=== PATIENT | female | born 1990 ===

== ENCOUNTER 2020-07-11 23:01 | Inpatient (IN) ==
[2020-07-12] MEDS ORDERED: OXYTOCIN 30 UNITS/500 ML BAG IV PRN ×2 (02:23→14:13)
[2020-07-12 02:40] LABS: Hematocrit (blood only) 32.7 % (37-47); Hemoglobin 10.8 g/dL (12.0-16.0); Mean Corpuscular Hemoglobin 25.1 pg (25-34); Mean Corpuscular Volume 75.9 fL (80-100); Mean Platelet Volume 9.7 fL (7.4-10.4); Platelet Count 198 K/uL (130-400); RDW Coefficient of Variation 13.9 % (11.5-14.5); RDW Standard Deviation 38.6 fL (36.4-46.3); Red Blood Count 4.31 M/uL (4.2-5.4); White Blood Count 6.38 K/uL (4.8-10.8)
[2020-07-12] MEDS: LACTATED RINGER'S 1,000 ML IV PRN ×2 (05:00→09:30)
[2020-07-12] MEDS ORDERED: ePHEDrine sulfate 50 MG/ML AMP ONE (05:07)
[2020-07-12] MEDS ORDERED: BUPIVACAINE 0.25% 30 ML VIAL ONE (05:07)
[2020-07-12] MEDS ORDERED: fentaNYL 2MCG/ML ROPIV 1.25MG/ML 100 ML BAG EPI ONE (05:08)
[2020-07-12] MEDS ORDERED: fentaNYL citrate 100 MCG/2 ML VIAL ONE (05:08)
--- NOTE | 2020-07-12 05:20 | Obstetrical Progress Note ---
Date of Service July 12, 2020 Assessment & Plan Admission and Anticipated Discharge Date Admission Date: July 12, 2020 Subjective Admit Note 30 F [id number] at 40.1 weeks admitted in labor. GBS is negative. Covid is negative. Cervix 4-5/80/-2/vertex. Planning for epidural, Anticipate normal delivery. Results & Data ([facility]) Vital Signs (Past 12 Hours) Vital Signs Temp Pulse Resp BP 07/12/20 02:17 77 104/68 07/12/20 02:15 36.9 C 18 07/11/20 23:24 36.8 C 72 18 117/76 07/11/20 23:11 72 117/76
--- NOTE | 2020-07-12 05:25 | Anesthesiology Consultation ---
Date of Service July 12, 2020 Assessment & Plan (1) Encounter for pre-operative examination: Chart Review Chart Review: Acceptable Risk for Labor Epidural History Height/Weight Height: 5 ft 1 in Weight: 66.678 kg Allergies Allergy/AdvReac Type Severity Reaction Status Date / Time vancomycin Allergy Rash Verified 07/11/20 23:23 Medications Home Medications Medication Instructions Recorded Confirmed Last Taken levothyroxine [Levoxyl] 125 mcg PO DAILY 07/11/20 07/11/20 07/11/20 06:00 [id number] 1 tab PO DAILY 07/11/20 07/11/20 07/11/20 08:00 [] Past Medical History Medical History Hypothyroid Past Surgical History Surgical History History of bilateral breast reduction surgery Hx of breast reduction, elective Social History Smoking Status: Never smoker Hx Alcohol Use: No Hx Substance Use: No Physical Exam Vital Signs Last Vital Signs Temp 36.9 C 07/12/20 02:15 Pulse 77 07/12/20 02:17 Resp 18 07/12/20 02:15 BP 104/68 07/12/20 02:17 Testing Laboratory Results 07/12/20 02:30
[2020-07-12] MEDS ORDERED: NALOXONE HCL 1 MG in SODIUM CHLORIDE 0.9% 1000ML 1,000 ML IV PRN (06:02)
[2020-07-12] MEDS ORDERED: ONDANSETRON INJ 2 MG/ML 2 ML VIAL IV PRN (06:02)
[2020-07-12] MEDS ORDERED: NALOXONE HCL 0.4 MG/1 ML VIAL/CARP IV PRN (06:02)
[2020-07-12] MEDS ORDERED: fentaNYL 2MCG/ML ROPIV 1.25MG/ML 100 ML BAG EPI PRN (06:02)
[2020-07-12] MEDS ORDERED: ePHEDrine sulfate 50 MG/ML AMP IV PRN (06:02)
--- NOTE | 2020-07-12 10:59 | Obstetrical Progress Note ---
Date of Service July 12, 2020 Assessment & Plan Admission and Anticipated Discharge Date Admission Date: July 12, 2020 Subjective Doing well FHR; CAT1 Ctx 1-4mins VE; 4/90/-2 SROM- Clear Results & Data ([facility]) Vital Signs (Past 12 Hours) Vital Signs Temp Pulse Resp BP Pulse Ox 07/12/20 10:56 83 110/74 07/12/20 10:55 84 100 07/12/20 10:50 95 H 100 07/12/20 10:48 95 H 105/68 07/12/20 10:45 110 H 98 07/12/20 10:40 78 98 07/12/20 10:35 75 99 07/12/20 10:33 74 104/69 07/12/20 10:30 83 99 07/12/20 10:25 71 98 07/12/20 10:20 81 98 07/12/20 10:16 78 106/70 07/12/20 10:15 81 99 07/12/20 10:10 80 99 07/12/20 10:05 91 H 99 07/12/20 10:03 75 106/70 07/12/20 10:00 83 99 07/12/20 09:55 92 H 99 07/12/20 09:50 76 100 07/12/20 09:47 93 H 97/62 L 07/12/20 09:45 80 98 07/12/20 09:40 87 98 07/12/20 09:35 69 99 07/12/20 09:32 89 101/65 07/12/20 09:30 82 99 07/12/20 09:25 79 98 07/12/20 09:24 99 H 92 07/12/20 09:20 80 98 07/12/20 09:16 82 104/70 07/12/20 09:15 95 H 99 07/12/20 09:10 80 99 07/12/20 09:05 92 H 100 07/12/20 09:01 76 108/74 07/12/20 09:00 88 100 07/12/20 08:55 74 99 07/12/20 08:50 91 H 100 07/12/20 08:46 83 102/70 07/12/20 08:45 75 100 07/12/20 08:40 89 99 07/12/20 08:35 82 99 07/12/20 08:31 91 H 104/70 07/12/20 08:30 76 99 07/12/20 08:25 81 99 07/12/20 08:20 87 100 07/12/20 08:16 65 104/68 07/12/20 08:15 79 100 07/12/20 08:10 76 99 07/12/20 08:05 89 99 07/12/20 08:02 79 104/70 07/12/20 08:00 88 100 07/12/20 07:55 82 100 07/12/20 07:50 89 100 07/12/20 07:46 81 96/66 L 07/12/20 07:45 72 99 07/12/20 07:40 76 100 07/12/20 07:35 70 100 07/12/20 07:31 72 99/65 L 07/12/20 07:30 68 99 07/12/20 07:25 67 99 07/12/20 07:20 76 99 07/12/20 07:17 86 92/63 L 07/12/20 07:16 95 H 93 07/12/20 07:15 83 100 07/12/20 07:10 64 100 07/12/20 07:09 63 102/70 07/12/20 07:08 36.4 C L 63 16 102/70 99 07/12/20 07:05 52 L 98 07/12/20 07:04 18 07/12/20 07:03 93 H 109/66 07/12/20 07:00 88 99 07/12/20 06:55 71 100 07/12/20 06:50 65 100 07/12/20 06:48 73 99/67 L 07/12/20 06:45 73 100 07/12/20 06:40 78 99 07/12/20 06:35 75 100 07/12/20 06:33 18 07/12/20 06:32 67 105/65 07/12/20 06:30 58 L 100 07/12/20 06:25 65 99 07/12/20 06:21 18 07/12/20 06:20 95 H 100 07/12/20 06:16 90 18 102/68 07/12/20 06:15 77 100 07/12/20 06:10 69 100 07/12/20 06:05 86 99 07/12/20 06:01 18 07/12/20 06:00 72 96/60 L 100 07/12/20 05:58 87 104/65 07/12/20 05:56 90 101/63 07/12/20 05:55 88 100 07/12/20 05:54 82 103/64 07/12/20 05:52 89 105/67 07/12/20 05:50 83 103/62 99 07/12/20 05:48 88 114/74 07/12/20 05:46 79 112/77 07/12/20 05:45 73 18 99 07/12/20 05:41 65 105/72 07/12/20 05:40 73 18 100 07/12/20 05:35 66 100 07/12/20 05:34 75 85 L 07/12/20 05:30 71 91 07/12/20 05:29 84 93 07/12/20 05:28 67 106/76 07/12/20 05:25 71 99 07/12/20 02:17 77 104/68 07/12/20 02:15 36.9 C 18 07/11/20 23:24 36.8 C 72 18 117/76 07/11/20 23:11 72 117/76
[2020-07-12] MEDS ORDERED: ACETAMINOPHEN 325 MG TAB PO PRN (14:13)
[2020-07-12] MEDS ORDERED: DIPHTHERIA/TETANUS/PERTUSSIS 0.5 ML SYR/VIAL IM ONE (14:13)
[2020-07-12] MEDS ORDERED: HYDROCORTISONE ACETATE 25 MG SUPP PR PRN (14:13)
[2020-07-12] MEDS ORDERED: miSOPROStoL 200 MCG TAB PR ONE (14:13)
[2020-07-12] MEDS ORDERED: SUPERCREAM 0.870% 15 GM JAR EXT PRN (14:13)
[2020-07-12] MEDS ORDERED: bisacodyL 10 MG SUPP PR PRN (14:13)
[2020-07-12] MEDS ORDERED: BENZOCAINE 20% AER SPR 82.5 GM CAN EXT PRN (14:13)
--- NOTE | 2020-07-12 14:29 | Delivery Summary ---
DATE OF OPERATION: 07/12/2020 The patient spontaneously delivered a live . No nuchal cord. Infant was delivered spontaneously in bed. On arrival to the bedside, the infant already was in bed, spontaneously delivered. There was no nuchal cord as stated above, cord was clamped and cut. Infant was placed on mother's abdomen. Cord blood was obtained. Placenta spontaneously delivered. Inspection of placenta shows normal placenta with 3-vessel cord. Inspection of the perineum shows no laceration or tears. Estimated blood loss is 450 mL. Baby and mother are doing well in recovery. Infant's weight and Apgars in the pediatric record. I attest to the content of the Intraoperative Record and any orders documented therein. Any exception s are noted below.
--- NOTE | 2020-07-12 15:44 | Anesthesia Procedure Note ---
Date of Service July 12, 2020 Anesthesia Post Epidural Note Vital Signs Vital Signs: Temp Pulse Resp BP Pulse Ox 36.4 C L 73 16 111/69 97 07/12/20 07:08 07/12/20 15:31 07/12/20 07:08 07/12/20 15:31 07/12/20 14:15 Notes Mental Status: alert / awake / arousable and participated in evaluation Nausea / Vomiting: adequately controlled Pain: adequately controlled Airway Patency, RR, SpO2: stable & adequate BP & HR: stable & adequate Hydration State: stable & adequate Neuraxial Anesthesia: was administered and sensory block is resolving Anesthetic Complications: no major complications apparent and Pt Satisfied with anesthetic care Epidural: Removed without complications and With tip intact
[2020-07-12] MEDS: IBUPROFEN 600 MG TAB PO PRN (19:25)
[2020-07-12] MEDS: DOCUSATE SODIUM 100 MG CAP PO SCH (20:24)
[2020-07-13] MEDS: IBUPROFEN 600 MG TAB PO PRN ×3 (03:24→12:09)
[2020-07-13] MEDS ORDERED: LEVOTHYROXINE SODIUM 125 MCG TABLET PO SCH (06:30)
[2020-07-13 06:43] LABS: Hematocrit (blood only) 35.2 % (37-47); Mean Corpuscular Hemoglobin 24.2 pg (25-34); Mean Corpuscular Hgb Conc 31.3 g/dL (32-36); Mean Corpuscular Volume 77.5 fL (80-100); Mean Platelet Volume 10.5 fL (7.4-10.4); Platelet Count 206 K/uL (130-400); RDW Coefficient of Variation 14.3 % (11.5-14.5); RDW Standard Deviation 40.7 fL (36.4-46.3); Red Blood Count 4.54 M/uL (4.2-5.4); White Blood Count 10.37 K/uL (4.8-10.8)
[2020-07-13] MEDS: DOCUSATE SODIUM 100 MG CAP PO SCH (07:34)
[2020-07-13] MEDS ORDERED: PRENATAL VITAMIN 1 TAB PO SCH (08:00)
--- NOTE | 2020-07-13 08:56 | Obstetrical Progress Note ---
Date of Service July 13, 2020 Assessment & Plan Admission and Anticipated Discharge Date Admission Date: July 12, 2020 Physical Exam Physical Exam: abdomen soft and non tender no calf tenderness ambulating well vaginal bleeding scant hgb 11.0 Results & Data ([facility]) Vital Signs (Past 12 Hours) Vital Signs Temp Pulse Resp BP Pulse Ox 07/13/20 03:20 36.9 C 68 16 112/66 99 07/12/20 23:00 37.4 C 74 16 109/64 98
--- NOTE | 2020-07-13 10:43 | Ultrasound Report ---
US venous doppler LE RT CLINICAL HISTORY: Complaint of right calf pain COMPARISON STUDY: No previous studies for comparison. FINDINGS: Real-time and color flow Doppler imaging were performed. Flow was seen within the femoral, popliteal and calf veins with no intraluminal thrombus demonstrated. The saphenous vein is patent. IMPRESSION: No evidence of right lower extremity DVT. ACT 112: Negative or not required by law. Electronically signed by: Ishan Crane M.D. 07/13/2020 10:42 AM
[2020-07-13] MEDS ORDERED: bisacodyL 5 MG TABEC PO SCH (20:00)
== END 2020-07-13 16:20 | disposition home or self-care (01) | DRG 807 ==
LOC: OPB 23:01 → 4S1 23:01 → 4S2 07-12 16:41